=== PATIENT | female | born 1965 | race Asian ===

== ENCOUNTER → 2021-08-06 10:37 | Outpatient (BNVA) | payer OTHER, SELFPAY | PROVIDERS: Visit Provider Physician Assistant Medical | DX: S61.214A Laceration without foreign body of right ring finger without damage to nail, initial encounter (principal); S61.216A Laceration without foreign body of right little finger without damage to nail, initial encounter; W26.9XXA Contact with unspecified sharp object(s), initial encounter; Z23 Encounter for immunization | CPT/HCPCS: 12002; 90714; 99202 ==

== ENCOUNTER → 2021-08-07 09:01 | Outpatient (BNVA) | payer OTHER, SELFPAY | PROVIDERS: Visit Provider Internal Medicine | DX: S61.411A Laceration without foreign body of right hand, initial encounter (principal); W26.9XXA Contact with unspecified sharp object(s), initial encounter | CPT/HCPCS: 99213 ==

== ENCOUNTER → 2021-08-13 09:07 | Outpatient (BNVA) | payer OTHER, SELFPAY | PROVIDERS: Visit Provider Internal Medicine | DX: S61.214D Laceration without foreign body of right ring finger without damage to nail, subsequent encounter (principal); S61.216D Laceration without foreign body of right little finger without damage to nail, subsequent encounter; W26.9XXD Contact with unspecified sharp object(s), subsequent encounter | CPT/HCPCS: 99213 ==